=== PATIENT | female | born 1985 | race Caucasian/White ===

== ENCOUNTER 2020-04-20 12:19 | Outpatient (CLI) | payer OTHER, SELFPAY ==
--- NOTE | 2020-04-27 21:46 | PM.OBTRLD ---
Visit Information Visit Information Date of evaluation: 04/21/20 Primary OB Provider: Keyona Cee Reason for Evaluation: Yes non-stress test non-stress test reason: other (IUGR, oligo) [facility] Medical History (Updated 04/20/20 @ 17:19 by Keyona Cee MD) Abnormal antibody titer (Acute) Dermatographia (Acute) Dyspareunia (Acute) Gastritis (Acute ~12/24/19) Pelvic and perineal pain (Acute) SAB (spontaneous ) (Acute) Severe headache (Acute ~2019) Surgical History (Updated 04/18/20 @ 10:23 by Josy Ly, RN) H/O dilation and curettage (Acute ~2004) H/O wisdom tooth extraction (Acute ~2012) Hx of LASIK (Acute ~2018) S/P excision of lipoma (Acute ~2016) Family History (Updated 04/18/20 @ 10:23 by Josy Ly, MIRI) Mother Breast cancer Father Sciatica Vertigo Grandfather Unknown whether patient has any health problems Family estrangement Grandmother Unknown whether patient has any health problems Family estrangement Grandfather Myocardial infarct Grandmother Diabetes mellitus Hypertension Cancer Lung cancer Social History marital status: details: Ish Sommers [phone] number of children: 1 household members: spouse (Ish Sommers [phone]) lives independently: Yes pets and animals: No (gave up her pet last week 04/09/20) education level: college (Some college) occupational status: employed ([employer]) current occupational exposures/hazards: No lopez/church: Gnosticist special lopez needs: No do you feel safe at home: Yes Smoking Status: Never smoker second hand exposure: No alcohol intake: never substance use type: does not use Type(s) of exercise: aerobic frequency: 3-4 times per week duration: 45-60 minutes/day Evaluation Evaluation Baseline heart rate: 135 Variability: Moderate (11-25) monitor accelerations: Present monitor decelerations: Absent Category of Tracing: Reactive Diagnosis, Plan/Disposition Plan/Disposition Plan: 32 weeks gestation with IUGR D/C to home [facility] F/U 1 week OB Disposition: home
== END 2020-04-20 13:20 | disposition home or self-care (01) ==
LOC: LABOR 13:24 → OB 04-21 11:06
PROVIDERS: PCP Obstetrics & Gynecology; Referring Provider Obstetrics & Gynecology; Visit Provider Obstetrics & Gynecology
DX: Z34.83 Encounter for supervision of other normal pregnancy, third trimester (principal); Z3A.32 32 weeks gestation of pregnancy
CPT/HCPCS: 59025; G0378; G0379

== ENCOUNTER 2020-04-28 17:16 | Outpatient (CLI) | payer OTHER, SELFPAY ==
--- NOTE | 2020-04-28 18:03 | P.TNLD_ITS ---
Visit Information Visit Information Date of evaluation: 04/28/20 Primary OB Provider: Keyona Cee Reason for Evaluation: Yes non-stress test non-stress test reason: other (IUGR, anti M antibodies, low amniotic fluid, placental core angioma) [facility] Medical History (Updated 04/20/20 @ 17:19 by Keyona Cee MD) Abnormal antibody titer (Acute) Dermatographia (Acute) Dyspareunia (Acute) Gastritis (Acute ~12/24/19) Pelvic and perineal pain (Acute) SAB (spontaneous ) (Acute) Severe headache (Acute ~2019) Surgical History (Updated 04/18/20 @ 10:23 by Josy Ly, RN) H/O dilation and curettage (Acute ~2004) H/O wisdom tooth extraction (Acute ~2012) Hx of LASIK (Acute ~2018) S/P excision of lipoma (Acute ~2016) Family History (Updated 04/18/20 @ 10:23 by Josy Ly, RN) Mother Breast cancer Father Sciatica Vertigo Grandfather Unknown whether patient has any health problems Family estrangement Grandmother Unknown whether patient has any health problems Family estrangement Grandfather Myocardial infarct Grandmother Diabetes mellitus Hypertension Cancer Lung cancer Social History marital status: details: Ish Sommers [phone] number of children: 1 household members: spouse (Ish Sommers [phone]) lives independently: Yes pets and animals: No (gave up her pet last week 04/09/20) education level: college (Some college) occupational status: employed ([employer]) current occupational exposures/hazards: No lopez/shinto: Hinduism special lopez needs: No do you feel safe at home: Yes Smoking Status: Never smoker second hand exposure: No alcohol intake: never substance use type: does not use Type(s) of exercise: aerobic frequency: 3-4 times per week duration: 45-60 minutes/day Evaluation Evaluation Baseline heart rate: 140 Variability: Average (6-10) monitor accelerations: Present monitor decelerations: Absent Category of Tracing: Reactive Diagnosis, Plan/Disposition Plan/Disposition Plan: Assessment: 33 wks gestation IUGR, oligo, placental chorangioma Reactive NST Plan: [facility]'s F/U 1 week for NST OB Disposition: home
== END 2020-04-28 18:10 | disposition home or self-care (01) ==
LOC: LABOR 17:45 → OB 05-03 11:45
PROVIDERS: PCP Obstetrics & Gynecology; Referring Provider Obstetrics & Gynecology; Visit Provider Obstetrics & Gynecology
DX: O36.5930 Maternal care for other known or suspected poor fetal growth, third trimester, not applicable or unspecified (principal); O41.03X0 Oligohydramnios, third trimester, not applicable or unspecified; D26.7 Other benign neoplasm of other parts of uterus; O26.23 Pregnancy care for patient with recurrent pregnancy loss, third trimester; Z3A.33 33 weeks gestation of pregnancy
CPT/HCPCS: 59025; G0378; G0379

== ENCOUNTER 2020-05-03 12:55 | Outpatient (CLI) | payer OTHER, SELFPAY ==
--- NOTE | 2020-05-04 06:11 | P.TNLD_ITS ---
[facility] Medical History (Updated 04/29/20 @ 11:17 by Keyona Cee MD) Abnormal antibody titer (Acute) Dermatographia (Acute) Dyspareunia (Acute) Gastritis (Acute ~12/24/19) Pelvic and perineal pain (Acute) SAB (spontaneous ) (Acute) Severe headache (Acute ~2019) Surgical History (Updated 04/18/20 @ 10:23 by Josy Ly, MIRI) H/O dilation and curettage (Acute ~2004) H/O wisdom tooth extraction (Acute ~2012) Hx of LASIK (Acute ~2018) S/P excision of lipoma (Acute ~2016) Family History (Updated 04/18/20 @ 10:23 by Josy Ly RN) Mother Breast cancer Father Sciatica Vertigo Grandfather Unknown whether patient has any health problems Family estrangement Grandmother Unknown whether patient has any health problems Family estrangement Grandfather Myocardial infarct Grandmother Diabetes mellitus Hypertension Cancer Lung cancer Social History marital status: details: Ish Sommers [phone] number of children: 1 household members: spouse (Ish Sommers [phone]) lives independently: Yes pets and animals: No (gave up her pet last week 04/09/20) education level: college (Some college) occupational status: employed ([employer]) current occupational exposures/hazards: No lopez/spiritism: [employer] special lopez needs: No do you feel safe at home: Yes Smoking Status: Never smoker second hand exposure: No alcohol intake: never substance use type: does not use Type(s) of exercise: aerobic frequency: 3-4 times per week duration: 45-60 minutes/day Evaluation Evaluation Baseline heart rate: 135 Variability: Moderate (11-25) monitor accelerations: Present monitor decelerations: Absent Category of Tracing: Reactive Diagnosis, Plan/Disposition Plan/Disposition Plan: 34 weeks gestation IUGR Oligohydramnios Placental Chorangioma Reactive NST Plan: F/U 3 days for CONSTANZA/NST OB Disposition: home
== END 2020-05-03 14:00 | disposition home or self-care (01) ==
LOC: OB 05-04 11:50
PROVIDERS: PCP Obstetrics & Gynecology; Referring Provider Obstetrics & Gynecology; Visit Provider Obstetrics & Gynecology
DX: O36.5930 Maternal care for other known or suspected poor fetal growth, third trimester, not applicable or unspecified (principal); O41.03X0 Oligohydramnios, third trimester, not applicable or unspecified; O26.23 Pregnancy care for patient with recurrent pregnancy loss, third trimester; D26.7 Other benign neoplasm of other parts of uterus; Z3A.33 33 weeks gestation of pregnancy
CPT/HCPCS: 59025; 59050; G0378; G0379

== ENCOUNTER → 2020-05-06 11:16 | Outpatient (CLI) | payer OTHER, SELFPAY ==
--- NOTE | 2020-05-06 11:17 | DI.US.S_ITS ---
PROCEDURE: US OB LIMITED INDICATIONS: CONSTANZA Check OUTSIDE/PRIOR DATING DATA: Last menstrual period (LMP): 09/15/2019. LMP-based estimated date of delivery (ANJU): 06/15/2020 . First dating scan (date and location): 04/20/2020 . Estimated date of delivery (ANJU) from first dating scan: 06/21/2020 . TECHNIQUE: Real-time scanning was performed of the fetus, with image documentation and biometric measurements. Endovaginal scanning: No COMPARISON: [facility], , OB >= 14 WEEKS FETUS, 05/03/2020, 12:40. FINDINGS: General: A single living intrauterine gestation is present. Presentation: Breech. Placenta: Placental position is posterior fundal , without previa. Complex placental mass present along the superior margin of the placenta at the level of the fundus measuring 4.0 x 3.7 x 2.7 cm. Amniotic fluid index: 7.9 cm, normal range is 5-24 cm. heart rate: 137 beats per minute. Maternal cervical canal: 4.3 cm long. Normal lower limit is 2.5 cm. biometrics: Biparietal diameter: 33 weeks 4 days Head circumference: 36 weeks 3 days Abdominal circumference: 32 weeks 5 days Femur length: 33 weeks 0 days Estimated gestational age from initial scan: 33 weeks 3 days Composite gestational age from present scan: 34 weeks 0 days Estimated weight and percentile: 2145 g; 35th percentile Measurement variability for biometric dating: +/- 7 days from 14 weeks to 15 weeks 6 days gestation, +/- 10 days from 16 weeks to 21 weeks 6 days gestation, +/- 2 weeks from 22 weeks to 27 weeks 6 days gestation, +/- 3 weeks for 28 weeks gestation or later. weight reference: 4500 g or EFW >90/95% is considered macrosomia or large for gestational age. EFW <10% is small for gestational age. EFW 5% or less is considered intra-uterine growth restriction. Other: Not applicable. IMPRESSION: 1. Single living IUP redemonstrated and interval growth is within normal limits. 2. 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 Dictated by: Robinson DINH Interpreted: Nael Cabrera MD on 05/06/2020 at 16:43 Approved by: Nael Cabrera M.D. on 05/06/2020 at 17:42
== END ==
PROVIDERS: PCP Obstetrics & Gynecology; Referring Provider Obstetrics & Gynecology; Visit Provider Obstetrics & Gynecology
DX: O36.5930 Maternal care for other known or suspected poor fetal growth, third trimester, not applicable or unspecified (principal); O43.193 Other malformation of placenta, third trimester; D26.7 Other benign neoplasm of other parts of uterus; O41.03X0 Oligohydramnios, third trimester, not applicable or unspecified; Z3A.34 34 weeks gestation of pregnancy
CPT/HCPCS: 76815

== ENCOUNTER 2020-05-06 12:50 | Outpatient (CLI) | payer OTHER, SELFPAY ==
--- NOTE | 2020-05-06 13:15 | PM.OBTRLD ---
Visit Information Visit Information Date of evaluation: 05/06/20 Primary OB Provider: Keyona Cee On-call OB Provider: Jackie Simmons Reason for Evaluation: Yes non-stress test Comments/Additional reasons for admission: Patient at 34 weeks gestation, being followed for IUGR and oligohydramnios and presenting for NST as part of scheduled testing. [facility] Medical History (Updated 04/29/20 @ 11:17 by Keyona Cee MD) Abnormal antibody titer (Acute) Dermatographia (Acute) Dyspareunia (Acute) Gastritis (Acute ~12/24/19) Pelvic and perineal pain (Acute) SAB (spontaneous ) (Acute) Severe headache (Acute ~2019) Surgical History (Updated 04/18/20 @ 10:23 by Josy Ly, MIRI) H/O dilation and curettage (Acute ~2004) H/O wisdom tooth extraction (Acute ~2012) Hx of LASIK (Acute ~2018) S/P excision of lipoma (Acute ~2016) Family History (Updated 04/18/20 @ 10:23 by Josy Ly, MIRI) Mother Breast cancer Father Sciatica Vertigo Grandfather Unknown whether patient has any health problems Family estrangement Grandmother Unknown whether patient has any health problems Family estrangement Grandfather Myocardial infarct Grandmother Diabetes mellitus Hypertension Cancer Lung cancer Social History marital status: details: Ish Sommers [phone] number of children: 1 household members: spouse lives independently: Yes pets and animals: No (gave up her pet last week 04/09/20) education level: college occupational status: employed current occupational exposures/hazards: No lopez/mormonism: Hoahaoism special lopez needs: No do you feel safe at home: Yes Smoking Status: Never smoker second hand exposure: No alcohol intake: never substance use type: does not use Type(s) of exercise: aerobic frequency: 3-4 times per week duration: 45-60 minutes/day Review of Systems Constitutional Constitutional: Reports system reviewed and no additional complaints, except as documented Evaluation Evaluation Baseline heart rate: 135 Variability: Moderate (11-25) monitor accelerations: Present monitor decelerations: Absent Category of Tracing: Reactive Diagnosis, Plan/Disposition Plan/Disposition Plan: Home with scheduled precautions, s/p normal CONSTANZA by diagnostic imaging. OB Disposition: home
== END 2020-05-06 13:20 | disposition home or self-care (01) ==
LOC: LABOR 12:55 → OB 05-09 12:30
PROVIDERS: PCP Obstetrics & Gynecology; Referring Provider Obstetrics & Gynecology; Visit Provider Obstetrics & Gynecology
DX: O36.5930 Maternal care for other known or suspected poor fetal growth, third trimester, not applicable or unspecified (principal); O41.03X0 Oligohydramnios, third trimester, not applicable or unspecified; O26.23 Pregnancy care for patient with recurrent pregnancy loss, third trimester; D26.7 Other benign neoplasm of other parts of uterus; Z3A.34 34 weeks gestation of pregnancy; O43.193 Other malformation of placenta, third trimester
CPT/HCPCS: 59025; 76815; G0378; G0379

== ENCOUNTER → 2020-05-09 16:25 | Outpatient (CLI) | payer OTHER, SELFPAY | PROVIDERS: PCP Obstetrics & Gynecology; Referring Provider Obstetrics & Gynecology; Visit Provider Obstetrics & Gynecology | DX: O36.1930 Maternal care for other isoimmunization, third trimester, not applicable or unspecified (principal) | CPT/HCPCS: 36415; 86850; 86900; 86901 ==

== ENCOUNTER 2020-05-09 17:00 | Outpatient (CLI) | payer OTHER, SELFPAY ==
--- NOTE | 2020-05-09 17:45 | PM.OBTRLD ---
Visit Information Visit Information Date of evaluation: 05/09/20 Primary OB Provider: Keyona Cee Reason for Evaluation: Yes non-stress test non-stress test reason: other (IUGR, oligohydramnios, anti-M, chorangioma) [facility] Medical History (Updated 04/29/20 @ 11:17 by Keyona Cee MD) Abnormal antibody titer (Acute) Dermatographia (Acute) Dyspareunia (Acute) Gastritis (Acute ~12/24/19) Pelvic and perineal pain (Acute) SAB (spontaneous ) (Acute) Severe headache (Acute ~2019) Surgical History (Updated 04/18/20 @ 10:23 by Josy Ly, RN) H/O dilation and curettage (Acute ~2004) H/O wisdom tooth extraction (Acute ~2012) Hx of LASIK (Acute ~2018) S/P excision of lipoma (Acute ~2016) Family History (Updated 04/18/20 @ 10:23 by Josy Ly, RN) Mother Breast cancer Father Sciatica Vertigo Grandfather Unknown whether patient has any health problems Family estrangement Grandmother Unknown whether patient has any health problems Family estrangement Grandfather Myocardial infarct Grandmother Diabetes mellitus Hypertension Cancer Lung cancer Social History marital status: details: Ish Sommers [phone] number of children: 1 household members: spouse (Ish Sommers [phone]) lives independently: Yes pets and animals: No (gave up her pet last week 04/09/20) education level: college (Some college) occupational status: employed ([employer]) current occupational exposures/hazards: No lopez/temple: Muslim special lopez needs: No do you feel safe at home: Yes Smoking Status: Never smoker second hand exposure: No alcohol intake: never substance use type: does not use Type(s) of exercise: aerobic frequency: 3-4 times per week duration: 45-60 minutes/day Evaluation Evaluation Baseline heart rate: 135 Variability: Moderate (11-25) monitor accelerations: Present monitor decelerations: Absent Contraction Frequency (minutes): 8 Uterine Contraction Intensity: Mild Category of Tracing: Reactive Diagnosis, Plan/Disposition Plan/Disposition Plan: Assessment: 34-year-old 1 para 0 at 30 form 5/7 weeks gestation with IUGR, oligohydramnios, core angioma, anti M isoimmunization OB Disposition: home (F/U 4 days, [facility].)
== END 2020-05-09 17:45 | disposition home or self-care (01) ==
LOC: OB 05-10 14:16
PROVIDERS: PCP Obstetrics & Gynecology; Referring Provider Obstetrics & Gynecology; Visit Provider Obstetrics & Gynecology
DX: O36.5930 Maternal care for other known or suspected poor fetal growth, third trimester, not applicable or unspecified (principal); O41.03X0 Oligohydramnios, third trimester, not applicable or unspecified; D26.7 Other benign neoplasm of other parts of uterus; Z3A.34 34 weeks gestation of pregnancy; O36.1930 Maternal care for other isoimmunization, third trimester, not applicable or unspecified
CPT/HCPCS: 36415; 59025; 86850; 86900; 86901; G0378; G0379

== ENCOUNTER 2020-05-13 10:21 | Outpatient (CLI) | payer OTHER, SELFPAY ==
--- NOTE | 2020-05-13 10:58 | PM.OBTRLD ---
Visit Information Visit Information Date of evaluation: 05/13/20 Primary OB Provider: Keyona Cee Reason for Evaluation: Yes non-stress test non-stress test reason: other (Placental chorangioma, oligohydramnios, anti M antibodies, IUGR) [facility] Medical History (Updated 04/29/20 @ 11:17 by Keyona Cee MD) Abnormal antibody titer (Acute) Dermatographia (Acute) Dyspareunia (Acute) Gastritis (Acute ~12/24/19) Pelvic and perineal pain (Acute) SAB (spontaneous ) (Acute) Severe headache (Acute ~2019) Surgical History (Updated 04/18/20 @ 10:23 by Josy Ly, RN) H/O dilation and curettage (Acute ~2004) H/O wisdom tooth extraction (Acute ~2012) Hx of LASIK (Acute ~2018) S/P excision of lipoma (Acute ~2016) Family History (Updated 04/18/20 @ 10:23 by Josy Ly, RN) Mother Breast cancer Father Sciatica Vertigo Grandfather Unknown whether patient has any health problems Family estrangement Grandmother Unknown whether patient has any health problems Family estrangement Grandfather Myocardial infarct Grandmother Diabetes mellitus Hypertension Cancer Lung cancer Social History marital status: details: Ish Sommers [phone] number of children: 1 household members: spouse lives independently: Yes pets and animals: No (gave up her pet last week 04/09/20) education level: college occupational status: employed current occupational exposures/hazards: No lopez/restorationist: Scientology special lopez needs: No do you feel safe at home: Yes Smoking Status: Never smoker second hand exposure: No alcohol intake: never substance use type: does not use Type(s) of exercise: aerobic frequency: 3-4 times per week duration: 45-60 minutes/day Evaluation Evaluation Baseline heart rate: 130 Variability: Moderate (11-25) monitor accelerations: Present monitor decelerations: Absent Category of Tracing: Reactive Diagnosis, Plan/Disposition Plan/Disposition Plan: Assessment: 34-year-old 1 para 0 at 34 weeks gestation with a history of anti M antibodies, a placental chorangioma, oligohydramnios, and history of IUGR in this Reactive nonstress test Plan: Discharge to home kick counts Follow-up in 3 days for OB visit, CONSTANZA, and nonstress test OB Disposition: home
== END 2020-05-13 10:47 | disposition home or self-care (01) ==
LOC: LABOR 10:25 → OB 05-17 15:01
PROVIDERS: PCP Obstetrics & Gynecology; Referring Provider Obstetrics & Gynecology; Visit Provider Obstetrics & Gynecology
DX: O41.03X0 Oligohydramnios, third trimester, not applicable or unspecified (principal); Z3A.34 34 weeks gestation of pregnancy; O36.5930 Maternal care for other known or suspected poor fetal growth, third trimester, not applicable or unspecified; O36.8930 Maternal care for other specified fetal problems, third trimester, not applicable or unspecified
CPT/HCPCS: 59025; G0378; G0379

== ENCOUNTER 2020-05-16 17:44 | Outpatient (CLI) | payer OTHER, SELFPAY ==
--- NOTE | 2020-05-17 06:37 | PM.OBTRLD ---
Visit Information Visit Information Date of evaluation: 05/16/20 Primary OB Provider: Keyona Cee Reason for Evaluation: Yes non-stress test non-stress test reason: other Comments/Additional reasons for admission: chorangioma of placenta, oligohydramnios, anti-M antibodies [facility] Medical History (Updated 04/29/20 @ 11:17 by Keyona Cee MD) Abnormal antibody titer (Acute) Dermatographia (Acute) Dyspareunia (Acute) Gastritis (Acute ~12/24/19) Pelvic and perineal pain (Acute) SAB (spontaneous ) (Acute) Severe headache (Acute ~2019) Surgical History (Updated 04/18/20 @ 10:23 by Josy Ly, RN) H/O dilation and curettage (Acute ~2004) H/O wisdom tooth extraction (Acute ~2012) Hx of LASIK (Acute ~2018) S/P excision of lipoma (Acute ~2016) Family History (Updated 04/18/20 @ 10:23 by Josy Ly, MIRI) Mother Breast cancer Father Sciatica Vertigo Grandfather Unknown whether patient has any health problems Family estrangement Grandmother Unknown whether patient has any health problems Family estrangement Grandfather Myocardial infarct Grandmother Diabetes mellitus Hypertension Cancer Lung cancer Social History marital status: details: Ish Sommers [phone] number of children: 1 household members: spouse lives independently: Yes pets and animals: No (gave up her pet last week 04/09/20) education level: college occupational status: employed current occupational exposures/hazards: No lopez/yazidism: Worship special lopez needs: No do you feel safe at home: Yes Smoking Status: Never smoker second hand exposure: No alcohol intake: never substance use type: does not use Type(s) of exercise: aerobic frequency: 3-4 times per week duration: 45-60 minutes/day Evaluation Evaluation Baseline heart rate: 125 Variability: Moderate (11-25) monitor accelerations: Present monitor decelerations: Absent Contraction Frequency (minutes): 8 Uterine Contraction Intensity: Mild Category of Tracing: Reactive Cervical dilation (cm): 0 Diagnosis, Plan/Disposition Plan/Disposition Plan: Assessment: 34-year-old 1 para 0 at 35-,5/7 weeks gestation with oligohydramnios, a chorangioma of the placenta, and anti M antibodies Reactive nonstress test Plan: Follow-up in 3 days for OB visit, CONSTANZA, and nonstress test kick counts OB Disposition: home
== END 2020-05-16 18:04 | disposition home or self-care (01) ==
LOC: LABOR 17:50 → OB 05-17 15:02
PROVIDERS: PCP Obstetrics & Gynecology; Referring Provider Obstetrics & Gynecology; Visit Provider Obstetrics & Gynecology
DX: O47.03 False labor before 37 completed weeks of gestation, third trimester (principal); O26.23 Pregnancy care for patient with recurrent pregnancy loss, third trimester; O36.5930 Maternal care for other known or suspected poor fetal growth, third trimester, not applicable or unspecified; O41.03X0 Oligohydramnios, third trimester, not applicable or unspecified; D26.7 Other benign neoplasm of other parts of uterus; Z3A.36 36 weeks gestation of pregnancy
CPT/HCPCS: 59025; G0378; G0379

== ENCOUNTER → 2020-05-17 07:56 | Outpatient (CLI) | payer OTHER, SELFPAY ==
[2020-05-18 09:48] LABS: Strep Grp B PCR NEG for Grp B Strep
== END ==
PROVIDERS: PCP Obstetrics & Gynecology; Visit Provider Obstetrics & Gynecology
DX: Z34.83 Encounter for supervision of other normal pregnancy, third trimester (principal); Z3A.35 35 weeks gestation of pregnancy
CPT/HCPCS: 87653

== ENCOUNTER 2020-05-19 15:40 | Outpatient (CLI) | payer OTHER, SELFPAY ==
--- NOTE | 2020-05-21 09:46 | PM.OBTRLD ---
Visit Information Visit Information Date of evaluation: 05/19/20 Primary OB Provider: Keyona Cee Reason for Evaluation: Yes non-stress test non-stress test reason: other (Placental chorangioma, oligohydramnios, anti M antibodies) [facility] Medical History (Updated 04/29/20 @ 11:17 by Keyona Cee MD) Abnormal antibody titer (Acute) Dermatographia (Acute) Dyspareunia (Acute) Gastritis (Acute ~12/24/19) Pelvic and perineal pain (Acute) SAB (spontaneous ) (Acute) Severe headache (Acute ~2019) Surgical History (Updated 04/18/20 @ 10:23 by Josy Ly, RN) H/O dilation and curettage (Acute ~2004) H/O wisdom tooth extraction (Acute ~2012) Hx of LASIK (Acute ~2018) S/P excision of lipoma (Acute ~2016) Family History (Updated 04/18/20 @ 10:23 by Josy Ly, MIRI) Mother Breast cancer Father Sciatica Vertigo Grandfather Unknown whether patient has any health problems Family estrangement Grandmother Unknown whether patient has any health problems Family estrangement Grandfather Myocardial infarct Grandmother Diabetes mellitus Hypertension Cancer Lung cancer Social History marital status: details: Ish Sommers [phone] number of children: 1 household members: spouse lives independently: Yes pets and animals: No (gave up her pet last week 04/09/20) education level: college occupational status: employed current occupational exposures/hazards: No lopez/hinduism: Taoism special lopez needs: No do you feel safe at home: Yes Smoking Status: Never smoker second hand exposure: No alcohol intake: never substance use type: does not use Type(s) of exercise: aerobic frequency: 3-4 times per week duration: 45-60 minutes/day Evaluation Evaluation Baseline heart rate: 125 Variability: Moderate (11-25) monitor accelerations: Present monitor decelerations: Absent Category of Tracing: Reactive Diagnosis, Plan/Disposition Plan/Disposition Plan: Assessment: 36 weeks gestation Anti-M antibodies Oligohydramnios Plan: D/C to home [facility] F/U 4 days OB Disposition: home
== END 2020-05-19 16:20 | disposition home or self-care (01) ==
LOC: LABOR 15:58 → OB 05-23 09:41
PROVIDERS: PCP Obstetrics & Gynecology; Referring Provider Obstetrics & Gynecology; Visit Provider Obstetrics & Gynecology
DX: O36.5930 Maternal care for other known or suspected poor fetal growth, third trimester, not applicable or unspecified (principal); O41.03X0 Oligohydramnios, third trimester, not applicable or unspecified; O26.23 Pregnancy care for patient with recurrent pregnancy loss, third trimester; D26.7 Other benign neoplasm of other parts of uterus; Z3A.36 36 weeks gestation of pregnancy
CPT/HCPCS: 59025; G0378; G0379

== ENCOUNTER 2020-05-23 13:58 | Outpatient (CLI) | payer OTHER, SELFPAY ==
--- NOTE | 2020-05-24 18:12 | P.TNLD_ITS ---
Visit Information Visit Information Date of evaluation: 05/23/20 Primary OB Provider: Keyona Cee Reason for Evaluation: Yes non-stress test non-stress test reason: other (Anti M antibody, oligohydramnios,chorangioma of the placenta) [facility] Medical History (Updated 04/29/20 @ 11:17 by Keyona Cee MD) Abnormal antibody titer (Acute) Dermatographia (Acute) Dyspareunia (Acute) Gastritis (Acute ~12/24/19) Pelvic and perineal pain (Acute) SAB (spontaneous ) (Acute) Severe headache (Acute ~2019) Surgical History (Updated 04/18/20 @ 10:23 by Josy Ly, RN) H/O dilation and curettage (Acute ~2004) H/O wisdom tooth extraction (Acute ~2012) Hx of LASIK (Acute ~2018) S/P excision of lipoma (Acute ~2016) Family History (Updated 04/18/20 @ 10:23 by Josy Ly, RN) Mother Breast cancer Father Sciatica Vertigo Grandfather Unknown whether patient has any health problems Family estrangement Grandmother Unknown whether patient has any health problems Family estrangement Grandfather Myocardial infarct Grandmother Diabetes mellitus Hypertension Cancer Lung cancer Social History marital status: details: Ish Sommers [phone] number of children: 1 household members: spouse lives independently: Yes pets and animals: No (gave up her pet last week 04/09/20) education level: college occupational status: employed current occupational exposures/hazards: No lopez/baptist: Baptism special lopez needs: No do you feel safe at home: Yes Smoking Status: Never smoker second hand exposure: No alcohol intake: never substance use type: does not use Type(s) of exercise: aerobic frequency: 3-4 times per week duration: 45-60 minutes/day Evaluation Evaluation Baseline heart rate: 130 Variability: Moderate (11-25) monitor accelerations: Present monitor decelerations: Absent Category of Tracing: Reactive Diagnosis, Plan/Disposition Plan/Disposition Plan: Assessment: 34-year-old 1 para 0 at 36-,5/7 weeks gestation with anti M antibodies, placental chorangioma, and oligohydramnios Reactive nonstress test Plan: Discharge to home kick counts reviewed Signs and symptoms of labor reviewed OB Disposition: home
== END 2020-05-23 14:41 | disposition home or self-care (01) ==
LOC: LABOR 14:08 → OB 05-24 06:58
PROVIDERS: PCP Obstetrics & Gynecology; Referring Provider Obstetrics & Gynecology; Visit Provider Obstetrics & Gynecology
DX: O41.03X0 Oligohydramnios, third trimester, not applicable or unspecified (principal); O26.23 Pregnancy care for patient with recurrent pregnancy loss, third trimester; D26.7 Other benign neoplasm of other parts of uterus; Z3A.36 36 weeks gestation of pregnancy
CPT/HCPCS: 59025; G0378; G0379

== ENCOUNTER 2020-05-26 15:34 | Outpatient (CLI) | payer OTHER, SELFPAY ==
--- NOTE | 2020-05-30 17:49 | P.TNLD_ITS ---
Visit Information Visit Information Date of evaluation: 05/26/20 Primary OB Provider: Keyona Cee Reason for Evaluation: Yes non-stress test non-stress test reason: other (Anti M antibody, placental chorangioma, oligohydramnios) [facility] Medical History (Updated 04/29/20 @ 11:17 by Keyona Cee MD) Abnormal antibody titer (Acute) Dermatographia (Acute) Dyspareunia (Acute) Gastritis (Acute ~12/24/19) Pelvic and perineal pain (Acute) SAB (spontaneous ) (Acute) Severe headache (Acute ~2019) Surgical History (Updated 04/18/20 @ 10:23 by Josy Ly, RN) H/O dilation and curettage (Acute ~2004) H/O wisdom tooth extraction (Acute ~2012) Hx of LASIK (Acute ~2018) S/P excision of lipoma (Acute ~2016) Family History (Updated 04/18/20 @ 10:23 by Josy Ly, MIRI) Mother Breast cancer Father Sciatica Vertigo Grandfather Unknown whether patient has any health problems Family estrangement Grandmother Unknown whether patient has any health problems Family estrangement Grandfather Myocardial infarct Grandmother Diabetes mellitus Hypertension Cancer Lung cancer Social History marital status: details: Ish Sommers [phone] number of children: 1 household members: spouse lives independently: Yes pets and animals: No (gave up her pet last week 04/09/20) education level: college occupational status: employed current occupational exposures/hazards: No lopez/orthodox: Confucianist special lopez needs: No do you feel safe at home: Yes Smoking Status: Never smoker second hand exposure: No alcohol intake: never substance use type: does not use Type(s) of exercise: aerobic frequency: 3-4 times per week duration: 45-60 minutes/day Evaluation Evaluation Baseline heart rate: 145 Variability: Moderate (11-25) monitor decelerations: Absent Uterine Contraction Intensity: Mild Category of Tracing: Reactive Diagnosis, Plan/Disposition Plan/Disposition Plan: [facility] F/U 4 days OB Disposition: home
== END 2020-05-26 16:15 | disposition home or self-care (01) ==
LOC: OB 05-30 15:08
PROVIDERS: PCP Obstetrics & Gynecology; Referring Provider Obstetrics & Gynecology; Visit Provider Obstetrics & Gynecology
DX: O41.03X0 Oligohydramnios, third trimester, not applicable or unspecified (principal); D26.7 Other benign neoplasm of other parts of uterus; Z3A.37 37 weeks gestation of pregnancy
CPT/HCPCS: 59025; G0378; G0379

== ENCOUNTER 2020-05-30 12:54 | Outpatient (CLI) | payer OTHER, SELFPAY ==
--- NOTE | 2020-05-30 17:45 | PM.OBTRLD ---
Visit Information Visit Information Date of evaluation: 05/30/20 Primary OB Provider: Keyona Cee Reason for Evaluation: Yes non-stress test non-stress test reason: other (Anti M antibody, oligohydramnios, placental chorangioma) [facility] Medical History (Updated 04/29/20 @ 11:17 by Keyona Cee MD) Abnormal antibody titer (Acute) Dermatographia (Acute) Dyspareunia (Acute) Gastritis (Acute ~12/24/19) Pelvic and perineal pain (Acute) SAB (spontaneous ) (Acute) Severe headache (Acute ~2019) Surgical History (Updated 04/18/20 @ 10:23 by Josy Ly, RN) H/O dilation and curettage (Acute ~2004) H/O wisdom tooth extraction (Acute ~2012) Hx of LASIK (Acute ~2018) S/P excision of lipoma (Acute ~2016) Family History (Updated 04/18/20 @ 10:23 by Josy Ly, MIRI) Mother Breast cancer Father Sciatica Vertigo Grandfather Unknown whether patient has any health problems Family estrangement Grandmother Unknown whether patient has any health problems Family estrangement Grandfather Myocardial infarct Grandmother Diabetes mellitus Hypertension Cancer Lung cancer Social History marital status: details: Ish Sommers [phone] number of children: 1 household members: spouse lives independently: Yes pets and animals: No (gave up her pet last week 04/09/20) education level: college occupational status: employed current occupational exposures/hazards: No lopez/rastafari: Pentecostal special lopez needs: No do you feel safe at home: Yes Smoking Status: Never smoker second hand exposure: No alcohol intake: never substance use type: does not use Type(s) of exercise: aerobic frequency: 3-4 times per week duration: 45-60 minutes/day Evaluation Evaluation Baseline heart rate: 135 Variability: Moderate (11-25) monitor accelerations: Present monitor decelerations: Absent Contraction Frequency (minutes): 8 Category of Tracing: Reactive Diagnosis, Plan/Disposition Plan/Disposition Plan: [facility] F/U 3 days for C section OB Disposition: home
== END 2020-05-30 13:15 | disposition home or self-care (01) ==
LOC: LABOR 12:59 → OB 15:09
PROVIDERS: PCP Obstetrics & Gynecology; Referring Provider Obstetrics & Gynecology; Visit Provider Obstetrics & Gynecology
DX: O41.03X0 Oligohydramnios, third trimester, not applicable or unspecified (principal); D26.7 Other benign neoplasm of other parts of uterus; Z3A.37 37 weeks gestation of pregnancy; Z11.59 Encounter for screening for other viral diseases
CPT/HCPCS: 59025; 87635; G0378; G0379

== ENCOUNTER → 2020-05-30 14:17 | Outpatient (CLI) | payer OTHER, SELFPAY ==
[2020-05-31 07:40] LABS: COVID19 Sendout Not Detected (Not Detect)
== END ==
PROVIDERS: PCP Obstetrics & Gynecology; Visit Provider Physician Assistant
DX: Z11.59 Encounter for screening for other viral diseases (principal)
CPT/HCPCS: 87635

== ENCOUNTER 2020-06-02 05:59 | Inpatient (IN) | payer OTHER, SELFPAY ==
[2020-06-02 06:39] VITALS: BP 105/65
[2020-06-02 06:40] LABS: Add Manual Diff / Slide Review NO; Basophils Absolute Auto 100 /uL (0-100); Basophils Percent Auto 0.7 % (0-2); Eosinophils Absolute Auto 300 /uL (0-450); Eosinophils Percent Auto 2.1 % (2-4); Lymphocytes Absolute Auto 2500 /uL (1100-4500); Lymphocytes Percent Auto 20.4 % (25-40); Mean Corpuscular HGB Conc 33.1 % (30-36); Mean Corpuscular Hemoglobin 31.9 PG (26-34); Mean Corpuscular Volume 96.4 fL (80-100); Monocytes Absolute Auto 1400 /uL (0-900); Monocytes Percent Auto 11.4 % (3-14); Neutrophils Absolute Auto 8000 /uL (1500-7000); Neutrophils Percent Auto 65.4 % (50-75); Platelet Count 315 X10^3/uL (150-400); Red Blood Cell Count 1.99 X10^6/uL (4.0-5.2); White Blood Cell Count 12.3 X10^3/uL (4.5-11.0)
[2020-06-02 06:44] LABS: Hematocrit 19.2 % (36-46); Hemoglobin 6.4 g/dL (12.0-16.0)
[2020-06-02 08:06] LABS: Hematocrit 31.5 % (36-46); Hemoglobin 10.4 g/dL (12.0-16.0)
[2020-06-02] MEDS: CEFAZOLIN 2 GM/100 ML FROZ.PIGGY IV (08:20)
--- NOTE | 2020-06-02 08:34 | PM.PREOP ---
Pre-operative Note COVID-19 COVID-19 status: Negative Result date/Date tested (Pos, Neg/Pending): 05/30/20 Interval Note History & Physical reviewed/Exam performed by Physician: Yes Changes to H&P: No
--- NOTE | 2020-06-02 09:02 | SUR.OPER ---
Supine on Padded OR bed, head on pillow, safety belt at thigh, arms secured on padded arm boards at <90 degrees abduction. Bump under right buttock. Legs uncrossed with pillow under knees, gel pad to heels, tape over blanket to lower legs.
--- NOTE | 2020-06-02 09:17 | SUR.OPER ---
FHT 140 LIVE FEMALE BORN AT 0854
[2020-06-02 09:37] VITALS: PULSE 77; RESP 12; TEMP 36.6; O2SAT 100
[2020-06-02 09:46] VITALS: BP 96/43; PULSE 78; RESP 16; O2SAT 100
[2020-06-02 09:51] VITALS: BP 106/43; PULSE 77; RESP 20; TEMP 36.6; O2SAT 100
--- NOTE | 2020-06-02 09:54 | PM.GYNOP.1 ---
Operative Date/Time/Diagnoses Date of procedure: 06/02/20 Time of procedure: 09:54 Pre-op diagnosis: Thirty-eight weeks gestation Anti M antibodies Oligohydramnios Placental chorangioma Breech presentation Post-op diagnosis: same Procedure & Clinicians Procedure: Procedures Operation Date: 06/02/20 07:45 Actual Procedures Side Surgeon p Primary Section Keyona Cee MD Indications: Thirty-eight weeks gestation Breech presentation Anti M antibodies Oligohydramnios Placental chorangioma Surgeon: Keyona Cee Clinical Data Analyst: Jackie Simmons Anesthesia Type: Spinal (with Duramorph) Operative Notes Closure Type: primary Specimen(s): other (Placenta to path, cord bloods to lab) Applied: catheter (To continuous drainage) Estimated blood loss (mL): 600 Blood products transfused: none Procedure in detail: The patient was taken to the operating room where she was placed in the seated position. Spinal anesthesia was administered with Duramorph. She was then placed in the dorsal supine position with a leftward tilt. She was prepped and draped in the usual sterile fashion. A timeout was performed. After spinal analgesia was found to be adequate, a Pfannenstiel skin incision was made 2 fingerbreadths above the pubic symphysis and carried through to the underlying layer fascia. The fascia was nicked in the midline, and the incision extended bilaterally with the Davila scissors. The superior aspect of the fascial incision was grasped with a Bedford clamps, elevated, and the underlying rectus muscles dissected off sharply and bluntly. Attention was then turned to the inferior aspect of this incision which in a similar fashion was grasped with a Audi clamps, elevated, and the underlying rectus muscles dissected off sharply and bluntly. The rectus muscles were in the midline. The peritoneum was identified, grasped between 2 hemostats, and entered sharply with the Metzenbaum scissors. This incision was extended superiorly and inferiorly with good visualization of the bladder. The bladder blade was inserted. The vesicouterine peritoneum was identified, grasped with the pickup, and entered sharply with the Metzenbaum scissors. This incision was extended bilaterally, and the bladder flap was created digitally. The bladder blade was reinserted. The lower uterine segment was incised in a transverse fashion with the scalpel. Upon entering the amniotic sac there was a small amount of clear amniotic fluid. The infant was found to be in the complete breech presentation. The buttocks was delivered 1st and the remainder of the body by total breech extraction. The nose and mouth were suctioned with bulb suction. The cord was double clamped and cut. The infant was handed off to waiting RN and RT. The placenta was delivered manually. The placenta appeared normal. The uterus was cleared of all clots and debris. The uterine incision was repaired with #1 chromic in a running interlocking fashion, and a second layer the same suture was used for an imbricating layer. Hemostasis was achieved. The tubes and ovaries were examined and were found to be normal. The gutters were cleared of all clots and debris. The bladder flap was reapproximated using 2-0 Vicryl in a running fashion. The parietal peritoneum was closed using 2-0 Vicryl in a running fashion. The fascia was reapproximated using 0 Vicryl in a running fashion. Subcutaneous layer was copiously irrigated with warm normal saline. Five simple interrupted sutures of 3-0 Vicryl were placed to reapproximate the subcutaneous layer. The skin was closed with 4-0 Biosyn in a subcuticular fashion. Steri-Strips were placed. An Aquacel dressing was placed. The uterus was expressed of a small amount of old blood. Sponge, lap, and instrument counts were correct ?-2. The patient tolerated the procedure well, and was taken to PACU in stable condition. Complications: none Post-operative Condition: stable Disposition: PACU Plan for aftercare: To the center after recovery
[2020-06-02 09:56] VITALS: BP 104/43; PULSE 72; RESP 14; TEMP 36.3; O2SAT 100
--- NOTE | 2020-06-02 10:00 | SUR.PHASEI ---
Report called to MIRI Melton.
[2020-06-02 10:01] VITALS: BP 105/52; PULSE 85; RESP 10; O2SAT 100
[2020-06-02] MEDS: KETOROLAC 30 MG/ML VIAL IV ×2 (15:33→21:43)
[2020-06-03] MEDS: KETOROLAC 30 MG/ML VIAL IV (03:32)
[2020-06-03 06:42] LABS: Hematocrit 28.3 % (36-46); Hemoglobin 9.3 g/dL (12.0-16.0)
[2020-06-03] MEDS: DOCUSATE 250 MG CAPSULE PO (09:29)
[2020-06-03] MEDS: IBUPROFEN 600 MG TABLET PO ×3 (09:29→21:32)
[2020-06-03] MEDS: PRENATAL VIT,CALC/IRON/FOLIC 1 TABLET 1 TAB PO (09:29)
[2020-06-03] MEDS: ACETAMINOPHEN 325 MG TABLET 650 MG PO (12:38)
--- NOTE | 2020-06-03 18:05 | PM.PNPO.1 ---
Subjective Subjective Date Patient Seen: 06/03/20 Time Patient Seen: 18:05 Interval history: Patient is a 34-year-old 1 para 1 postop day # 1 status post primary low-transverse section due to breech presentation, anti M antibodies, and oligohydramnios. Patient is doing well. She is tolerating a diet. She has been able to void without catheter. Pain is well controlled with ibuprofen and Tylenol. Bleeding is tapering. is going well. Exam Vital Signs (past 8 hours): Oxygen Delivery Method Room Air Narrative Exam Narrative: Generally: Patient is sitting up in bed, holding , no acute distress Lungs: Clear to auscultation bilaterally Cardiovascular: Regular rate and rhythm Abdomen: Soft, good bowel sounds Fundus: Firm at U -1 Incision: Clean dry and intact with Aquacel dressing Extremities: Negative Homans, no edema Objective Labs Result Diagrams: 06/03/20 06:33 Labs: Laboratory Results - last 24 hr 06/03/20 06:33 Hgb 9.3 L Hct 28.3 L Assessment & Plan Post-op Postoperative Procedures: Procedures Operation Date: 06/02/20 07:45 Actual Procedures Side Surgeon p Primary Section Keyona Cee MD Postoperative day: 1 Postoperative status: doing well Postoperative plan: routine post-op care Time Spent With Patient Time with patient: less than 15 minutes
[2020-06-04] MEDS: ACETAMINOPHEN 325 MG TABLET 650 MG PO ×2 (00:19→07:59)
[2020-06-04] MEDS: IBUPROFEN 600 MG TABLET PO ×2 (03:17→08:51)
[2020-06-04] MEDS: DOCUSATE 250 MG CAPSULE PO (08:00)
[2020-06-04] MEDS: PRENATAL VIT,CALC/IRON/FOLIC 1 TABLET 1 TAB PO (08:00)
[2020-06-04 09:47] VITALS: BP 104/61; PULSE 82; RESP 16; TEMP 37.3
--- NOTE | 2020-06-04 09:49 | PM.OBDS.1 ---
Discharge Providers Provider Date of admission: 06/02/20 05:59 Discharge Date: 06/04/20 Primary care physician: Keyona Cee MD Consults: 06/02/20 11:21 Consult to Licensed Sales Producer Routine Comment: Discharge provider: Keyona Cee MD Summary Hospital Course Date Patient Seen: 06/04/20 Time Patient Seen: 09:49 Procedures: Primary low-transverse section Spinal anesthesia Hospital Course: Patient is a 34-year-old 1 para 1 who presented on June 02, 2020 for a scheduled primary low-transverse section secondary to breech presentation, oligohydramnios, anti M antibodies, and a placental chorangioma. She underwent this procedure without complication. Her postoperative course has been unremarkable. She is tolerating a diet. She is using Tylenol and ibuprofen for pain. She is ambulating without assistance. She has voided without the catheter. Peripartum Data Delivery Method: Section Episiotomy description: None Procedures: Spinal anesthesia Primary low-transverse section complications: none [place] 1: Gender: Female Disposition of : home Status at Discharge Cognitive/behavioral status at discharge: oriented Functional status at discharge: independent ambulation Overall status at discharge: patient is progressing back to baseline Time Spent with Patient Time attestation: Total time spent providing and/or coordinating discharge services: Time spent: Less than 30 minutes Objective Labs Result Diagrams: 06/03/20 06:33 Exam Vital Signs (past 8 hours): - 06/04/20 09:47 Temperature 99.2 F Pulse Rate 82 Respiratory Rate 16 Blood Pressure 104/61 Oxygen Delivery Method Room Air Discharge Plan Discharge Plan Patient Disposition: Home Discharge comment: Call with fever, chills, redness or drainage around the bandage, or bleeding vaginally more than a pad in an hour Ibuprofen 800 mg every 6 hours Tylenol 650 mg every 6 hours Percocet 1 tab every 4 hours as needed Discharge orders & Medications Prescriptions: New docusate sodium [Colace] 100 mg capsule 100 mg PO DAILY Qty: 14 RF: 0 oxycodone-acetaminophen [Percocet] 5-325 mg tablet 1 tab PO Q4-6H PRN (Reason: pain) Qty: 10 RF: 0 Continued prenat.vits,truman,[id number] Tablet 1 tab PO DAILY RF: 0 ferrous sulfate 324 mg (65 mg iron) tablet,delayed release (DR/EC) 324 mg PO Q OTHER DAY RF: 0 fluoride (sodium) 1.1 % paste See Rx Instructions .ROUTE .COMPLEX RF: 0 Follow up/Referrals: Keyona Cee MD [Primary Care Provider] - (Incision check: please follow up w/ Dr. Cee on Saturday, @ 4:45pm) Diet/Activity/Treatments Diet: Regular Activity: No heavy lifting Skin/Wound/Dressing Care Report to your healthcare provider any signs of infection, such as:: chills, fever, increased pain, unusual drainage and unusual redness Dressing: Do not remove Visit Report/Discharge Packet Instructions: DI for Stand Alone Forms: Discharge: Care Discharge Data Primary Care Provider: Keyona Cee
--- NOTE | 2020-06-04 09:56 | PM.OBDS.1 ---
Discharge Providers Provider Date of admission: 06/02/20 05:59 Discharge Date: 06/04/20 Primary care physician: Keyona Cee MD Consults: 06/02/20 11:21 Consult to Canceling And Cutting Control Clerk Routine Comment: Discharge provider: Keyona Cee MD Summary Hospital Course Hospital Course: Patient is a 34-year-old 1 para 1 who presented on June 02, 2020 for a scheduled primary low-transverse section secondary to breech presentation, oligohydramnios, anti M antibodies, and a placental chorangioma. She underwent this procedure without complication. Her postoperative course has been unremarkable. She is tolerating a diet. She is using Tylenol and ibuprofen for pain. She is ambulating without assistance. She has voided without the catheter. Time Spent with Patient Time attestation: Total time spent providing and/or coordinating discharge services: Objective Labs Result Diagrams: 06/03/20 06:33 Exam Vital Signs (past 8 hours): - 06/04/20 09:47 Temperature 99.2 F Pulse Rate 82 Respiratory Rate 16 Blood Pressure 104/61 Oxygen Delivery Method Room Air Narrative Exam Narrative: Generally: Patient is sitting on edge of bed, no acute distress Lungs: Clear to auscultation bilaterally Cardiovascular: Regular rate and rhythm Fundus: Firm at U -2 Incision: Clean dry and intact with Aquacel dressing Extremities: 1+ edema, negative Homans Discharge Plan Discharge Plan Patient Disposition: Home Discharge comment: Call with fever, chills, redness or drainage around the bandage, or bleeding vaginally more than a pad in an hour Ibuprofen 800 mg every 6 hours Tylenol 650 mg every 6 hours Percocet 1 tab every 4 hours as needed Discharge orders & Medications Prescriptions: New docusate sodium [Colace] 100 mg capsule 100 mg PO DAILY Qty: 14 RF: 0 oxycodone-acetaminophen [Percocet] 5-325 mg tablet 1 tab PO Q4-6H PRN (Reason: pain) Qty: 10 RF: 0 Continued prenat.vits,truman,[id number]-aztva Tablet 1 tab PO DAILY RF: 0 ferrous sulfate 324 mg (65 mg iron) tablet,delayed release (DR/EC) 324 mg PO Q OTHER DAY RF: 0 fluoride (sodium) 1.1 % paste See Rx Instructions .ROUTE .COMPLEX RF: 0 Follow up/Referrals: Keyona Cee MD [Primary Care Provider] - (Incision check: please follow up w/ Dr. Cee on @ 4:45pm) Diet/Activity/Treatments Diet: Regular Activity: No heavy lifting Skin/Wound/Dressing Care Report to your healthcare provider any signs of infection, such as:: chills, fever, increased pain, unusual drainage and unusual redness Dressing: Do not remove Visit Report/Discharge Packet Instructions: DI for Stand Alone Forms: Discharge: Care Discharge Data Primary Care Provider: Keyona Cee
== END 2020-06-04 11:33 | disposition home or self-care (01) | DRG 788 ==
PROVIDERS: Admitting Provider Obstetrics & Gynecology; PCP Obstetrics & Gynecology; Referring Provider Obstetrics & Gynecology; Visit Provider Obstetrics & Gynecology
PROC: 10D00Z1 Extraction of Products of Conception, Low, Open Approach (ICD-10-PCS; CPT 59514; principal; 2020-06-02 07:45)
DX: O41.03X0 Oligohydramnios, third trimester, not applicable or unspecified (principal); O64.1XX0 Obstructed labor due to breech presentation, not applicable or unspecified; Z3A.38 38 weeks gestation of pregnancy; Z37.0 Single live birth; O36.1930 Maternal care for other isoimmunization, third trimester, not applicable or unspecified; O43.893 Other placental disorders, third trimester
CPT/HCPCS: 36415; 59050; 59514; 59515; 85014; 85018; 85025; 86850; 86900; 86901; J0690; J1885; J2274; J2405; J2590

== ENCOUNTER → 2021-01-26 19:06 | Outpatient (CLI) | payer OTHER, SELFPAY ==
--- NOTE | 2021-01-26 | DI.MRI.S_ITS ---
PROCEDURE: MR KNEE RT WO CON INDICATIONS: pain in unspecified knee, right TECHNIQUE: Noncontrast sagittal PD fast spin echo and T2 fast spin echo with fat saturation, sagittal 3-D FLASH with fat saturation; coronal T1 spin echo and PD fast spin echo with fat saturation, and axial PD fast spin echo with fat saturation through the knee. COMPARISON: None. FINDINGS: Image quality: Excellent. Menisci: The medial and lateral menisci demonstrate normal morphology and internal signal. The meniscal root ligaments appear intact. Cruciate ligaments: The anterior and posterior cruciate ligaments appear intact. Medial structures: The medial collateral ligament appears intact. The posterior oblique ligament, semimembranosus tendon insertions, oblique popliteal ligament, and meniscocapsular junction appear intact. Visualized portions of the pes anserinus tendons appear normal. No abnormal bursal fluid. Lateral structures: The lateral collateral ligament, long and short heads of the biceps femoris tendon appear intact. The popliteus tendon appears normal; the popliteofibular ligament appears intact. The posterosuperior and anteroinferior popliteomeniscal fascicles appear intact. The arcuate and fabellofibular ligaments appear intact, on either side of the lateral inferior geniculate artery. Iliotibial band appears normal. Anterior structures: Distal quadriceps in is intact. Mildly thickened distal patellar tendon at its anterior tibial insertion is seen suggestive of mild tendinosis. No evidence of patellar tendon rupture. The patella alignment is normal. No femoral trochlear dysplasia or ventral trochlear prominence. No edema in the infrapatellar fat pad. Bones and cartilage: No bone marrow contusions or fractures. The cartilage of the medial and lateral femorotibial compartments, as well as the patellofemoral compartment, appears normal in thickness. Joint space: There is physiologic knee joint fluid. No Mejia's cyst. Normal appearing synovial plicae are incidentally noted. IMPRESSION: 1. Finding is suggestive of mild tendinosis involving distal patellar tendon at its anterior tibial insertion. No evidence of patellar tendon rupture. Distal quadriceps tendon is intact. 2. Cruciate ligaments are intact. No evidence of focal meniscal tear. 3. No marrow edema. No fracture or dislocation. No significant chondromalacia is noted. Dictated by: Nael Cabrera M.D. on 01/27/2021 at 9:10 Approved by: Nael Cabrera M.D. on 01/27/2021 at 9:13
== END ==
PROVIDERS: Referring Provider Family Medicine; Visit Provider Family Medicine
DX: M25.569 Pain in unspecified knee (principal)
CPT/HCPCS: 73721